=== PATIENT | male | born 1960 | race Caucasian/White ===

== ENCOUNTER → 2021-05-03 | Outpatient (CLI) | payer BC | LOC: KOH-I 13:02 | DX: R07.9 Chest pain, unspecified (principal) | CPT/HCPCS: 71046 ==

== ENCOUNTER → 2021-05-11 | Outpatient (CLI) | payer BC | LOC: HEART 5 07:51 | DX: R07.9 Chest pain, unspecified (principal) | CPT/HCPCS: 78452; A9502 ==

== ENCOUNTER → 2021-11-15 | Outpatient (CLI) | payer BC | LOC: KOH-I 10:44 | DX: M79.671 Pain in right foot (principal); S82.831A Other fracture of upper and lower end of right fibula, initial encounter for closed fracture | CPT/HCPCS: 73610; 73630 ==

== ENCOUNTER → 2021-11-18 | Outpatient (CLI) | payer BC ==
[~2021-11-18] MED LIST: ATENOLOL50 MG PO; CRESTOR20 MG PO; FLOMAX 0.4 MG0.4 MG PO; HYDROCHLOROTH12.5 MG PO; JARDIANCE10 MG PO; LISINOPRIL2.5 MG PO; METFORMIN HCL1000 MG PO; ROPINIROLE HCL1 MG PO; TRAMADOL HCL50 MG PO; TYLENOL EXTRA500 MG PO; VITAMIN D31250 MCG PO
[2021-11-18 11:50] LABS: HEMOGLOBIN 15.7 gm/dl (14.0-17.5); RED BLOOD COUNT 4.92 M/UL (4.20-5.50); WHITE BLOOD COUNT 7.6 K/UL (4.5-11.0)
[2021-11-18 12:02] LABS: BUN/CREATININE RATIO 28 (0-10)
== END ==
LOC: OPSV2 10:30
PROVIDERS: Podiatrist Foot & Ankle Surgery
DX: Z01.818 Encounter for other preprocedural examination (principal); S82.831A Other fracture of upper and lower end of right fibula, initial encounter for closed fracture
CPT/HCPCS: 36415; 80048; 85027; 93005

== ENCOUNTER → 2021-11-25 | Outpatient (CLI) | payer BC | LOC: KOH-I 11:11 | DX: S82.891A Other fracture of right lower leg, initial encounter for closed fracture (principal) | CPT/HCPCS: 73610 ==

== ENCOUNTER → 2021-12-09 | Outpatient (CLI) | payer BC | LOC: KOH-I 10:57 | DX: S82.891D Other fracture of right lower leg, subsequent encounter for closed fracture with routine healing (principal) | CPT/HCPCS: 73610 ==

== ENCOUNTER → 2021-12-23 | Outpatient (CLI) | payer BC | LOC: KOH-I 11:18 | DX: S82.891D Other fracture of right lower leg, subsequent encounter for closed fracture with routine healing (principal) | CPT/HCPCS: 73610 ==

== ENCOUNTER → 2022-01-13 | Outpatient (CLI) | payer BC | LOC: KOH-I 09:56 | DX: S82.841D Displaced bimalleolar fracture of right lower leg, subsequent encounter for closed fracture with routine healing (principal); X58.XXXD Exposure to other specified factors, subsequent encounter; Z98.890 Other specified postprocedural states | CPT/HCPCS: 73610 ==